=== PATIENT | female | born 1930 | race Caucasian/White ===

== ENCOUNTER → 2016-08-23 | Outpatient (CLI) | payer MEDICARE, BC ==
[~2016-08-23] MED LIST: A/T/S 2% GEL30 GM TOP; ALOCRIL OU; ALPRAZOLAM0.25 MG; CEFTIN500 MG PO; FERROUS SULFATE PO; FLONASE16 GM; FOLIC ACID PO; FOSAMAX PO; K-DUR10 MEQ PO; LASIX20 MG PO; MULTI-VITAMIN1 TAB PO; NORCO 5/325 TAB1 TAB PO; PAIN MED; PATIENT'S PHARMACY; PERCOCET5/325 PO; PROTONIX PO; STOOL SOFTENER PO; VICODIN PO; VITAMIN C; VITAMIN D400 UNI1 PO; ZITHROMAX500 MG PO; ZYRTEC-D T1 TAB.SR . PO
--- NOTE | ~2016-08-23 | CT4 ---
[facility] A Service of [facility] RADIOLOGY TEXT RESULTS PATIENT: RK TIJERINA LOCATION: [facility] : [birth year] UNIT #: [id number] AGE: [address]: Carissa Qiu APRN SEX: F ORDER DR: [id number] [address] [address] [id number] O MR#: [id number] Acc #: [id number] NAME: RK TIJERINA : 1930 SEX: F STUDY DATE/TIME: 08/23/2016 16:09 UNIT: [facility] ROOM: STUDY DESCRIPTION: CT Abd and Pelv Wo Cont Attending Physician: Carissa Qiu A.P.R.N. Referring Physician: Carissa Qiu A.P.R.N. Ordering Physician: Carissa Qiu A.P.R.N. Primary Care Physician: Carissa Qiu A.P.R.N. MEDICAL IMAGING REPORT This report is preliminary unless electronic signature is present. EXAM CT abdomen and pelvis, without contrast, 08/23/2016. HISTORY Back pain for a week; suspected kidney stones. COMPARISON None TECHNIQUE Axial 3-mm images were obtained through the abdomen and pelvis without IV or oral contrast. This CT exam was performed with one or more of the following radiation dose reduction techniques: automatic exposure control, adjustment of mA and/or kV according to patient size, and iterative reconstruction. FINDINGS There is mild ufzhk-scljqun-ffnw-left basilar atelectasis, and there is a tiny right effusion. The liver, spleen, pancreas, adrenal glands, and left kidney are normal. The right kidney has a large stone in the renal pelvis, measuring 12 mm in diameter. There is no hydronephrosis. The aorta is normal in size, and there is no adenopathy. The bowel shows numerous sigmoid diverticula, but is otherwise normal. The uterus, adnexal regions, and bladder are normal. 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 The bones are otherwise unremarkable. IMPRESSION 1. 12-mm right renal stone in the renal pelvis without obstruction. 2. Gallbladder is not visible and presumably has been removed. 3. Minimal right effusion with xullr-dlowiqx-aosj-left basilar atelectasis. [facility] A Service of [facility] RADIOLOGY TEXT RESULTS PATIENT: RK TIJERINA LOCATION: [facility] #: [id number] : [birth year] UNIT #: [id number] AGE: [address]: Carissa Qiu APRN SEX: F ORDER DR: Dictated by... Joe Jensen M.D. THIS IS AN ELECTRONICALLY VERIFIED REPORT Joe Jensen M.D. at 08/23/2016 8:02 PM SHAHAB/henok TD: 08/23/2016 19:04 JOB #: [id number] MEDICAL IMAGING REPORT Page 1 of 1
== END | disposition home or self-care (01) ==
LOC: SCT 15:47
DX: N20.0 Calculus of kidney (principal); M54.5 Low back pain; J90 Pleural effusion, not elsewhere classified; J98.11 Atelectasis
CPT/HCPCS: 74176

== ENCOUNTER → 2016-09-02 | Outpatient (CLI) | payer MEDICARE, BC ==
--- NOTE | ~2016-09-02 | CT98 ---
[facility] A Service of [facility] & [facility] RADIOLOGY TEXT RESULTS PATIENT: RK TIJERINA LOCATION: [facility] : [birth year] UNIT #: [id number] AGE: [address]: Carissa Qiu APRN SEX: F ORDER DR: [id number] [facility] [address] [place], [place] [address] [id number] O MR#: [id number] [facility] #: [id number] NAME: RK TIJERINA : 1930 SEX: F STUDY DATE/TIME: 09/02/2016 12:02 UNIT: [facility] ROOM: STUDY DESCRIPTION: CT Lumbar Spine Wo Cont Attending Physician: Carissa Qiu A.P.R.N. Referring Physician: Carissa Qiu A.P.R.N. Ordering Physician: Carissa Qiu A.P.R.N. Primary Care Physician: Carissa Qiu A.P.R.N. MEDICAL IMAGING REPORT This report is preliminary unless electronic signature is present EXAM Lumbar spine CT no contrast, 09/02/2016 PROCEDURE Axial lumbar spine CT without contrast with multiplanar reformats. This CT exam was performed with one or more of the following radiation dose reduction techniques: automatic exposure control, adjustment of mA and/or kV according to patient size, and iterative reconstruction. HISTORY 3 month history of low back pain following surgery. COMPARISON Prior lumbar spine CT, 05/08/2010 FINDINGS A chronic compression fracture at T12 is redemonstrated and there are new compression fractures since the prior CT at L4 with about 60% to 70% height loss and at L1 with about 60% to 70% height loss. Slight lower endplate deformity at L3 is unchanged. The L4 fracture, while new since the prior study, appears chronic and healed while the L1 fracture appears probably subacute. There is slight retropulsion of bone at the L1 lower endplate with mild resultant canal narrowing. No aggressive appearing bone erosion or destruction is seen. There is a scoliosis and there is a reversal of lordosis centered at T12 though that is not substantially changed since the prior study. The paraspinous tissues are remarkable for a large right renal calculus in the region of the renal pelvis measuring at least 14.0 x 9.0 x 9.0 mm. At L1-2, there is mild stenosis but primarily due to L1 lower endplate STS. [facility] A Service of [facility] & [facility] RADIOLOGY TEXT RESULTS PATIENT: RK TIJERINA LOCATION: [facility] : [birth year] UNIT #: [id number] AGE: [address]: Carissa Qiu APRN SEX: F ORDER DR: fracture deformity. There is mild to moderate bilateral foraminal narrowing. At 2-3, there is no canal stenosis or foraminal stenosis. At 3-4, there is disc and endplate change and facet arthropathy and moderate degenerative canal stenosis, and moderate bilateral foraminal stenosis. At 4-5, there is moderate to severe degenerative canal stenosis, and moderate to severe right and mild left foraminal stenosis. At 5-1, there is no canal stenosis and mild, if any, bilateral foraminal narrowing. IMPRESSION 1. New since 2010 but chronic appearing L4 compression fracture and subacute appearing L1 lower endplate compression fracture. Additional degenerative canal and foraminal narrowing also seen. See above for details. 2. No apparent hydronephrosis but there is a stone in the right renal collecting system measuring about 9.0 x 14.0 x 9.0 mm in size. Dictated by... Kory Michelle M.D. THIS IS AN ELECTRONICALLY VERIFIED REPORT Kory Michelle M.D. at 09/03/2016 3:54 PM KAITLYNN/tevin TD: 09/03/2016 15:06 JOB #: [id number] MEDICAL IMAGING REPORT Page 1 of 1 COPY
== END | disposition home or self-care (01) ==
LOC: CCAT 11:21
DX: M54.5 Low back pain (principal); M48.56XA Collapsed vertebra, not elsewhere classified, lumbar region, initial encounter for fracture; M99.83 Other biomechanical lesions of lumbar region; N20.0 Calculus of kidney
CPT/HCPCS: 72131

== ENCOUNTER → 2016-09-29 | Outpatient (CLI) | payer MEDICARE, BC ==
--- NOTE | ~2016-09-29 | CR7 ---
[facility] A Service of [facility] RADIOLOGY TEXT RESULTS PATIENT: RK TIJERINA LOCATION: [facility] : [birth year] UNIT #: [id number] AGE: [address]: Corona Dupree MD SEX: F ORDER DR: [id number] [facility] [address] [place], [place] [address] [id number] O MR#: [id number] [facility] #: [id number] NAME: RK TIJERINA : 1930 SEX: F STUDY DATE/TIME: 09/29/2016 10:23 UNIT: [facility] ROOM: STUDY DESCRIPTION: CR Abdomen Single AP View Attending Physician: Corona Dupree M.D. Referring Physician: Corona Dupree M.D. Ordering Physician: Corona Dupree M.D. Primary Care Physician: Carissa Qiu A.P.R.N. MEDICAL IMAGING REPORT This report is preliminary unless electronic signature is present EXAM Portable abdomen HISTORY Kidney stones. Bilateral flank pain for 2 months. Ureteral stent for 2 weeks. FINDINGS Right double-pigtail ureteral stent extends from the level of the right kidney to the urinary bladder. There are questionable small stone fragments along the distal aspect of the ureteral stent near the level of the ureterovesical junction, adjacent to an incidental right pelvic phlebolith. There are additional small incidental left pelvic phleboliths. Mild left lumbar curve. Vertebroplasty at L1 and severe compression fractures of T12 and L1. Left hip prosthesis partly visualized. Additional compression fracture of L4. The spine fractures are stable compared to CT 08/23/2016 and the vertebroplasty at L1 has been performed in the interim. IMPRESSION 1. Questionable small stone fragments along the distal aspect of the right ureteral stent near the level of the ureterovesical junction, adjacent to a right pelvic phlebolith. Right ureteral stent extends from the level of the right kidney to the urinary bladder. 2. Bowel gas pattern is normal. 3. Degenerative and hypertrophic changes in the lumbar spine. Chronic lower thoracic and vertebral compression fractures. Dictated by... Lino Del Castillo M.D. [facility] A Service of [facility] & [facility] RADIOLOGY TEXT RESULTS PATIENT: RK TIJERINA LOCATION: [facility] #: [id number] : [birth year] UNIT #: [id number] AGE: [address]: Corona Dupree MD SEX: F ORDER DR: THIS IS AN ELECTRONICALLY VERIFIED REPORT Lino Del Castillo M.D. at 09/29/2016 10:39 PM DFL/pcl TD: 09/29/2016 20:59 JOB #: [id number] MEDICAL IMAGING REPORT Page 1 of 1 COPY
== END | disposition home or self-care (01) ==
LOC: CRAD 10:11
DX: N20.0 Calculus of kidney (principal); M47.896 Other spondylosis, lumbar region; Z96.0 Presence of urogenital implants
CPT/HCPCS: 74000